=== PATIENT | male | born 2000 | race Two or more races ===

== ENCOUNTER 2021-06-15 02:20 | Emergency (ER) | payer OTHER ==
[~2021-06-15] VITALS: Ht 162.6 cm; Wt 56.8 kg
[2021-06-15] MEDS ORDERED: IBUPROFEN 800 MG TABLET PO ONE (04:15)
[2021-06-15 04:25] VITALS: BP 121/69
== END 2021-06-15 04:30 | disposition home or self-care (01) ==
LOC: EMS 02:23
DX: K40.90 Unilateral inguinal hernia, without obstruction or gangrene, not specified as recurrent (principal)
CPT/HCPCS: 99283